=== PATIENT | male | born 1995 | race Caucasian/White ===

== ENCOUNTER 2021-10-24 08:24 | Emergency (ER) | payer OTHER ==
--- NOTE | 2021-10-24 08:59 | ED Physician Documentation ---
PD HPI BACK PAIN - Stated complaint Stated Complaint: LOWER BACK PX - Chief complaint Chief Complaint: Back Pain - History obtained from History obtained from: Patient - History of Present Illness Timing - onset: How many days ago (4) Timing - duration: Days (4) Timing - details: Abrupt onset, Still present (worsening the past 1 1/2 days) Location: Lower (he was at [employer] 4 days ago and bounced onto one of the side rails, striking tailbone area. Pain in the area and painful to sit. However the pain has increased a lot the past 1 1/2 days. Feeling of swelling in the area.) Quality: Pain, Sharp Associated symptoms: No: Fever, Weakness, Numbness Worsened by: Movement, Palpation, Other (direct pressure such as sitting.) Contributing factors: Trauma (initial pain when struck area when landed from bounce on [employer] [place] directly to tailbone.) Similar symptoms before: Has not had sx before Recently seen: Not recently seen Review of Systems Constitutional: reports: Chills. denies: Fever Nose: denies: Rhinorrhea / runny nose, Congestion Throat: denies: Sore throat Respiratory: denies: Cough GI: denies: Abdominal Pain, Nausea, Vomiting Skin: denies: Abrasion (s), Laceration (s) Musculoskeletal: denies: Neck pain, Back pain PD PAST MEDICAL HISTORY - Past Medical History Past Medical History: No Cardiovascular: None Respiratory: None Neuro: None Endocrine/Autoimmune: None GI: None : None HEENT: None Psych: None Musculoskeletal: None - Past Surgical History Past Surgical History: Yes General: Appendectomy - Present Medications Home Medications: Ambulatory Orders Medication Instructions Recorded Confirmed HYDROcod/ACETAM 5/325 [[place] 5/325] 1 ea PO Q6H PRN #18 tablet 10/24/21 Ibuprofen [Motrin] 600 mg PO TID PRN #25 tab 10/24/21 Sulfamethox/Trimeth 800/160 1 each PO BID #14 tablet 10/24/21 [Bactrim Ds 800/160] - Allergies Allergies/Adverse Reactions: Allergies Allergy/AdvReac Type Severity Reaction Status Date / Time No Known Drug Allergies Allergy Verified 10/24/21 08:33 - Social History Does the pt smoke?: No Smoking Status: Never smoker Does the pt drink ETOH?: No Does the pt have substance abuse?: No - Immunizations Immunizations are current?: Yes PD ED PE NORMAL - Vitals Vital signs reviewed: Yes - General General: Alert and oriented X 3, Well developed/nourished, Other (appears in pain and lying on side to avoid pressure in tailbone area. ) - Neck Neck: Supple, no meningeal sign, No bony TTP - Abdomen Abdomen: Normal bowel sounds, Soft, Non tender, Non distended - Back Back: No CVA TTP, No spinal TTP (not in lumbar nor upper sacral area. There is marked tenderness with swelling in the pilonidal area, with redness and fluctuance. No drainage. COccyx tender. ) Results - Vitals Vitals: Vital Signs - 24 hr 10/24/21 10/24/21 10/24/21 08:27 10:55 11:30 Temperature 36.4 C L 36.8 C Heart Rate 105 H 79 77 Respiratory 16 16 16 Rate Blood Pressure 122/71 119/65 115/74 O2 Saturation 98 100 99 Oxygen O2 Source Room air - Labs Labs: Microbiology 10/24/21 11:25 Wound Culture - Preliminary Buttock - Left - Rads (name of study) pelvic CT Radiology: Prelim report reviewed (coccygeal fracture. soft tissue swelling.), See rad report Procedures - Abscess I&D (location) pilonidal area Preparation: Confirmed with ultrasound, Lidocaine 1%, With epi Incision: Incised with scalpel, Purulent drainage (about 15 ml.), Irrigated, Culture obtained Other: Pt tolerated well, Antibiotic prescribed PD MEDICAL DECISION MAKING - ED course Complexity details: reviewed results, re-evaluated patient (feeling better with drainage and meds.), considered differential (clinicaly would appear c/w pilonidal abscess, but onset with trauma injury, so concern for sacral or coccygeal fracture as well. Can get imaging. ), d/w patient Departure - Departure Disposition: 01 Home, Self Care Clinical Impression: Pilonidal abscess Accidental fall Qualifiers: Encounter type: initial encounter Qualified Code(s): W19.XXXA - Unspecified fall, initial encounter Coccygeal fracture Qualifiers: Encounter type: initial encounter Fracture type: closed Qualified Code(s): S32.2XXA - Fracture of coccyx, initial encounter for closed fracture Condition: Stable Record reviewed to determine appropriate education?: Yes Instructions: ED Fx Coccyx, ED Cyst Pilonidal Infected IandD Follow-Up: [facility] [Provider Group] Prescriptions: Sulfamethox/Trimeth 800/160 [Bactrim Ds 800/160] 1 each PO BID #14 tablet Ibuprofen [Motrin] 600 mg PO TID PRN #25 tab PRN Reason: Pain HYDROcod/ACETAM 5/325 [[place] 5/325] 1 ea PO Q6H PRN #18 tablet PRN Reason: Pain Comments: Your CT scan does show a nondisplaced coccyx fracture (tailbone). This does not need any particular treatment but just time for it to heal and will be tender in the area. The most tenderness is typically the first week or so and then just avoiding direct pressure such as a cushion or pillow when sitting etc. You also have an infected cyst/abscess at the tailbone area which likely triggered from the local injury. We incised and drained it to get the pus out and that should help quite a bit. Warm soaks and the tub to help promote further drainage from the area and try to gently massage any residual purulence out from the wound today a few times. The incision made will seal up on its own and heal over a day or 2. Bactrim antibiotic twice daily for a week for the infection in the area. Ibuprofen 3 times a day with food for inflammation and pain. To that add Tylenol or hydrocodone as needed for pain. Off work for the next 3 to 5 days while this is initially getting better. Recheck with your primary in the next 3 to 5 days, call for an appointment. We did do a culture result a culture which will result in a couple of days we will call you if we need to modify the antibiotics based on that. I transmitted your prescriptions [facility]. I am prescribing a short course of narcotic pain medication for you. These are potentially dangerous and addictive medications that should be used carefully. These medications may constipate you. Take an [id number] stool softener such as docusate twice daily with plenty of water while taking these medications. If you go 24 hours without a bowel movement, take [id number] MiraLAX, per package instructions. Do not drink or drive while taking these medications. If you received narcotic or sedating medications while in the emergency d epartment do not drive for 24 hours. Store this medication in a safe, secure place and out of reach of children. It is a violation of federal law to give or sell this medication to another person or to use in a manner other than prescribed. The ED will not refill narcotic prescriptions, including prescriptions lost or stolen. You can dispose of unwanted medications at the [facility]'s office or at several pharmacies such as [facility]. Forms: Activity restrictions Discharge Date/Time: 10/24/21 11:45
[2021-10-24] MEDS ORDERED: KETOROLAC 30 MG/ML VIAL IM STA (09:18)
[2021-10-24] MEDS ORDERED: HYDROmorphone 1 MG/ML CARPUJECT IM STA (09:19)
[2021-10-24] MEDS ORDERED: ACETAMINOPHEN 325 MG TABLET PO STA (09:19)
--- NOTE | 2021-10-24 11:03 | CT Report ---
PROCEDURE: PELVIS WO INDICATIONS: fall trampoline with sacral pain/swelling TECHNIQUE: Noncontrast 3 mm axial sections acquired through the bony pelvis, with coronal and sagittal reformatt ing. For radiation dose reduction, the following was used: automated exposure control, adjustment of mA and/or kV according to patient size. COMPARISON: None. FINDINGS: Image quality: Excellent. Bones: Pelvic ring is intact. There is acute fracture involving distal coccyx with cortical irregula rity. No significant displacement of fracture site is seen. No other fracture or dislocation is seen. No avascular necrosis of femoral head. Visualized portion of lower lumbar spine is well aligned. Soft tissues: Mild soft tissue swelling adjacent to distal coccygeal fracture site is seen. There is no pelvic free fluid of free air. No abnormal bowel wall thickening. Bladder wall thickness is teresita l. No pelvic adenopathy by size criteria. No other muscle or soft tissue abnormality is seen. IMPRESSION: 1. Finding is suggestive of minimally displaced fracture involving distal coccyx with surrounding sof t tissue edema and swelling. No other pelvic fracture or dislocation is seen. 2. No pelvic free fluid of free air. No other muscle or soft tissue abnormality is seen. Reviewed by: Luca Wyman MD on 10/24/2021 11:02 AM PST Approved by: Luca Wyman MD on 10/24/2021 11:02 AM PST Station ID: [id number]
[2021-10-24] MEDS ORDERED: SULFAMETH/TRIMETH DS 800/160 MG TABLET PO STA (11:29)
[2021-10-24 11:40] VITALS: BP 115/74
== END 2021-10-24 11:45 | disposition home or self-care (01) ==
LOC: ED 08:24
DX: S32.2XXA Fracture of coccyx, initial encounter for closed fracture (principal); X58.XXXA Exposure to other specified factors, initial encounter; Y93.44 Activity, trampolining; L05.01 Pilonidal cyst with abscess
CPT/HCPCS: 10080; 72192; 87070; 87205; 96372; 99283; 99284; A9270; J1170